=== PATIENT | female | born 1955 | race Caucasian/White ===

== ENCOUNTER → 2016-11-20 | Outpatient (CLI) | payer MEDICARE, MEDICAID ==
[~2016-11-20] MED LIST: ALENDRONATE SOD35 MG PO; ANTIVERT GENERI25 MG PO; ASPIRIN 325MG325 MG PO; ASPIRIN 81MG TA81 MG PO; ATENOLOL25 MG PO; BENADRYL G12.5 MG/5 PO; BRILINTA90 M1 PO; FENOFIBRATE145 MG PO; FENOFIBRATE54 MG PO; FOSAMAX35 MG PO; HCTZ/TRIAMTEREN1 CA2 PO; IMDUR 30MG. TAB30 MG PO; ISOSORBIDE MONO30 MG PO; LISINOPRIL 10MG10 MG PO; LIVALO4 MG PO; MACROBID 100MG100 MG PO; MILK THISTLE1 CAP PO; NITROGLYCERIN0.4 MG SL; NORVASC 5MG. TAB5 MG PO; PLAVIX75 MG PO; PRAVACHOL20 MG PO; PREDNISONE 20MG20 MG PO; RANEXA500 M1 PO; VITAMIN D50000 IU PO; ZANTAC 150150 MG PO; [UNRECOGNIZED DRUG - OTHER] PO
== END ==
LOC: LAB 14:53
DX: R07.9 Chest pain, unspecified (principal); I25.10 Atherosclerotic heart disease of native coronary artery without angina pectoris

== ENCOUNTER → 2016-12-11 | Outpatient (CLI) | payer MEDICARE, MEDICAID | LOC: RT 15:20 | DX: I20.9 Angina pectoris, unspecified (principal) ==